=== PATIENT | male | born 1945 | race Caucasian/White ===

== ENCOUNTER 2017-01-14 05:54 | Day surgery (SDC) | payer MEDICARE ==
--- NOTE | ~2017-01-14 | EGD ---
EGD REPORT [facility] [address] [place] [address] NAME: SAURABH DONALDSON : [birth year] STATUS : REG [facility] PAT#: [id number] AGE: 71 ADM/REG DATE : 01/14/17 MR#: [id number] REPORT SERV DATE: 01/14/17 DICTATED BY: YISSEL FERGUSON DATE: 01/14/17 REPORT STATUS : Draft TRANSCRIBED BY: [employer] DATE: 01/14/17 [facility] Patient Name: Saurabh Donaldson Date of : 1945 Attending MD: YISSEL FERGUSON MD Procedure Date No Time: 01/14/2017 Procedure: Colonoscopy Indications: Screening for colorectal malignant neoplasm, Last colonoscopy remote past Referring MD: LYNNE AGUILAR Medicines: See the Anesthesia note for documentation of the administered medications Complications: No immediate complications. Procedure: Pre-Anesthesia Assessment: - ASA Grade Assessment: III - A patient with severe systemic disease. After I obtained informed consent, the scope was passed under direct vision. Throughout the procedure, the patient's blood pressure, pulse, and oxygen saturations were monitored continuously. The CF [id number] was introduced through the anus and advanced to the terminal ileum, with identification of the appendiceal orifice and IC valve. The colonoscopy was performed without difficulty. The patient tolerated the procedure well. The quality of the bowel preparation was adequate. Findings: The perianal and digital rectal examinations were normal. A single diverticulum was found in the cecum. Internal hemorrhoids were found during retroflexion and were small. Impression: - Diverticulosis in the cecum. - Internal hemorrhoids. Recommendation: - Patient has a contact number available for emergencies. The signs and symptoms of potential delayed complications were discussed with the patient. Return to normal activities tomorrow. Written discharge instructions were provided to the patient. - Regular diet. - Continue present medications. - Repeat colonoscopy in 10 years for screening purposes. - Repeat colonoscopy in 10 years. IF develop symptoms like bleeding or diarrhea, or Family history of colon cancer or polyps before age 60, you could require sooner EGD REPORT [address] [address] NAME: SAURABH DONALDSON : [birth year] STATUS : REG [facility]#: [id number] AGE: 71 ADM/REG DATE : 01/14/17 MR#: [id number] REPORT SERV DATE: 01/14/17 DICTATED BY: YISSEL FERGUSON DATE: 01/14/17 REPORT STATUS : Draft TRANSCRIBED BY: [employer] DATE: 01/14/17 colonoscopy Procedure Code(s): --- Professional --- 67444, Colonoscopy, flexible, proximal to splenic flexure; diagnostic, with or without collection of specimen(s) by brushing or washing, with or without colon decompression (separate procedure) Diagnosis Code(s): --- Professional --- K64.8, Other hemorrhoids K57.30, Diverticulosis of large intestine without perforation or abscess without bleeding Z12.11, Encounter for screening for malignant neoplasm of colon CPT copyright 2013 [employer]. All rights reserved. The codes documented in this report are preliminary and upon braille coder review may be revised to meet current compliance requirements. Yissel Ferguson MD YISSEL FERGUSON MD 01/14/2017 8:06 AM This report has been signed electronically. Number of Addenda: 0 Note Initiated On: 01/14/2017 7:38 AM Scope Withdrawal Time 0 hours 7 minutes 24 seconds [address] [id number]
[~2017-01-14 05:54] MED LIST: AZOR1 TAB PO; CEFT5 PO; CLARIT10 PO; DYAZIDE1 CAP PO; GLUCPH PO; KDUR20 PO; KLONO5 PO; L40 PO; MOBIC15 MG PO; NEUR300 PO; RANITIDINE300 MG PO; Z100 PO; ZANTAC 150 PO; ZIPSOR25 MG PO
== END 2017-01-14 23:59 | disposition home or self-care (01) ==
LOC: DMU 05:54
PROVIDERS: Internal Medicine Gastroenterology
PROC: 0DJD8ZZ Inspection of Lower Intestinal Tract, Via Natural or Artificial Opening Endoscopic (ICD-10-PCS; principal; 2017-01-14 08:00)
DX: Z12.11 Encounter for screening for malignant neoplasm of colon (principal); K64.8 Other hemorrhoids; K57.30 Diverticulosis of large intestine without perforation or abscess without bleeding; I10 Essential (primary) hypertension; E78.00 Pure hypercholesterolemia, unspecified; J44.9 Chronic obstructive pulmonary disease, unspecified; G47.33 Obstructive sleep apnea (adult) (pediatric); K21.9 Gastro-esophageal reflux disease without esophagitis; M48.00 Spinal stenosis, site unspecified; G89.29 Other chronic pain; E11.9 Type 2 diabetes mellitus without complications; Z90.49 Acquired absence of other specified parts of digestive tract; Z87.01 Personal history of pneumonia (recurrent); Z87.891 Personal history of nicotine dependence; Z79.84 Long term (current) use of oral hypoglycemic drugs; Z79.899 Other long term (current) drug therapy; Z99.81 Dependence on supplemental oxygen
CPT/HCPCS: 82962